=== PATIENT | male | born 1985 | race Caucasian/White ===

== ENCOUNTER 2016-10-21 21:06 | Emergency (ER) | payer MEDICAID ==
[2016-10-21] MEDS: IPRATROPIUM/ALBUTEROL 3 ML NEB INH STA ×2 (21:30→21:44)
[2016-10-21] MEDS ORDERED: IPRATROPIUM/ALBUTEROL 3 ML NEB INH ONE ×2 (21:32→21:34)
[2016-10-21] MEDS ORDERED: PSEUDOEPHEDRINE 30 MG TABLET PO ONE (21:50)
[2016-10-21] MEDS ORDERED: predniSONE 20 MG TABLET ONE (21:50)
[2016-10-21] MEDS: PSEUDOEPHEDRINE 30 MG TABLET PO STA (21:50)
[2016-10-21] MEDS ORDERED: CETIRIZINE 10 MG TABLET ONE (21:50)
[2016-10-21] MEDS: predniSONE 20 MG TABLET PO STA (21:51)
[2016-10-21] MEDS: CETIRIZINE 10 MG TABLET PO STA (21:51)
[2016-10-21] MEDS: ALBUTEROL NEB 2.5 MG/3 ML INH STA (23:03)
[2016-10-21] MEDS ORDERED: ALBUTEROL NEB 2.5 MG/3 ML INH ONE (23:04)
--- NOTE | 2016-10-21 23:45 | ED Physician Documentation ---
PD HPI DYSPNEA - Stated complaint Stated Complaint: DIFFICULTY BREATHING,CLOGGED EARS - Chief complaint Chief Complaint: Resp - History obtained from History obtained from: Patient, Friend - History of Present Illness Timing - details: Gradual onset, Still present Inciting event(s): Out of meds, URI Worsened by: Exertion, Coughing Associated symptoms: Wheezing Similar symptoms before: Work up / diagnostics Recently seen: Not recently seen - Additional information Additional information: Patient is a 31 year old male with a history of asthma and seasonal allergies who is presenting to the emergency department for congestion, wheezing, cough and shortness of breath. patient is out visiting and did not have his inhaler but had been using nasal spray. patient's symptom have become progressively worse so he came to the emergency department for evaluation. Review of Systems Constitutional: denies: Fever, Chills Eyes: reports: Irritation. denies: Decreased vision Ears: reports: Ear pain, Drainage/discharge. denies: Foreign body Nose: reports: Rhinorrhea / runny nose, Congestion, Sinus pressure / pain Throat: denies: Sore throat Cardiac: denies: Chest pain / pressure, Palpitations Respiratory: reports: Cough, Wheezing GI: denies: Nausea, Vomiting : reports: Reviewed and negative Skin: denies: Rash, Lesions Musculoskeletal: denies: Neck pain, Back pain Neurologic: reports: Headache. denies: Focal weakness, Numbness, Altered mental status, Head injury, LOC Psychiatric: denies: Depressed, Suicidal Immunocompromised: denies: Immunocompromised PD PAST MEDICAL HISTORY - Past Medical History Past Medical History: Yes Cardiovascular: None Respiratory: Asthma, Pneumonia, Shortness of breath Neuro: None Endocrine/Autoimmune: None GI: None : None HEENT: None Psych: None Musculoskeletal: None Derm: None - Past Surgical History Past Surgical History: Yes General: Appendectomy - Present Medications Home Medications: Ambulatory Orders Medication Instructions Recorded Confirmed Albuterol Sulf [Ventolin Hfa 2 puffs INH Q4HR PRN #1 inhaler 10/21/16 Inhaler] Prednisone 40 mg PO DAILY 5 Days 10/21/16 - Allergies Allergies/Adverse Reactions: Allergies Allergy/AdvReac Type Severity Reaction Status Date / Time No Known Drug Allergies Allergy Verified 10/21/16 21:19 - Social History Does the pt smoke?: No Smoking Status: Never smoker Does the pt drink ETOH?: No Does the pt have substance abuse?: No - Immunizations Immunizations are current?: Yes PD ED PE NORMAL - Vitals Vital signs reviewed: Yes - General General: Alert and oriented X 3 - HEENT HEENT: Atraumatic, PERRL - Neck Neck: Supple, no meningeal sign, No JVD - Cardiac Cardiac: RRR, No murmur - Abdomen Abdomen: Soft, Non distended - Derm Derm: Normal color, No rash - Extremities Extremities: No deformity, No edema, No calf tenderness / cord - Neuro Neuro: Alert and oriented X 3, No motor deficit, No sensory deficit, Normal speech - Psych Psych: Normal mood PD ED PE EXPANDED - General General: Alert - HEENT HEENT: R TM red, L TM red, Nasal congestion, Rhinorrhea, Dry mucous membranes, Pharynx normal. No: Pharyngeal erythema - Respiratory Respiratory: Accessory mm use, Wheezing Results - Vitals Vitals: Vital Signs - 24 hr 10/21/16 10/21/16 10/21/16 21:14 21:30 23:03 Temperature 36.7 C Heart Rate 70 78 79 Respiratory 19 18 16 Rate Blood Pressure 139/71 H O2 Saturation 97 10/22/16 01:07 Temperature 36.8 C Heart Rate 79 Respiratory 18 Rate Blood Pressure 136/68 H O2 Saturation 97 Oxygen O2 Source Room air PD MEDICAL DECISION MAKING - ED course Complexity details: reviewed results, re-evaluated patient, considered differential, d/w patient ED course: Patient was seen and examined at bedside. Patient was treated with three duonebs, zyrtec, psueudophed and prednisone. patient had good response to the medication but still had some wheezing. Patient was treated with additional albuterol. Patient's wheezing resolved by discharge. Patient was 100% on room air and was stable for discharge with outpatient follow up. Departure - Departure Disposition: 01 Home, Self Care Clinical Impression: Upper respiratory tract infection Condition: Good Instructions: ED Viral Syndrome Follow-Up: primary,care provider [Other] - Within 3 Days Prescriptions: Albuterol Sulf [Ventolin Hfa Inhaler] 2 puffs INH Q4HR PRN #1 inhaler PRN Reason: Wheezing Prednisone 40 mg PO DAILY 5 Days Comments: Your symptoms today are likely being caused by allergies, causing you to have an asthma attack. You should take steroids for the next 4 days. You should also take zyrtec or other allergy medicine along with pseudoephederine. You should follow up with your pmd when you get home. You can return to the emergency department at any time for new, worsening or uncontrollable symptoms. Discharge Date/Time: 10/21/16 23:55
[2016-10-22 01:09] VITALS: BP 136/68
== END 2016-10-21 23:55 | disposition home or self-care (01) ==
LOC: ED 21:06
DX: J06.9 Acute upper respiratory infection, unspecified (principal)
CPT/HCPCS: 94640; 99283